=== PATIENT | female | born 1950 | race Caucasian/White ===

== ENCOUNTER → 2017-05-19 | Outpatient (CLI) | payer BC, MEDICARE ==
[~2017-05-19] MED LIST: AL-MAG HYDROX-S30 M1 PO; AMITRIPTYLINE H50 MG PO; CELEBREX PO; CRESTOR; FUROSEMIDE40 MG PO; LORTAB 10/500 T1 TAB; LORTAB 5/500 TA1 TA2 PO; MEDROL DOSEPAK4 MG PO; METHOCARBAMOL500 MG PO; NABUMETONE; NEURONTIN PO; OPANA ER30 MG PO; PREMARIN PO; SYNTHROID PO; ULTRACET TABLET1 TAB; VESICARE; VIT E; ZYRTEC PO
--- NOTE | ~2017-05-19 | NM4 ---
[facility] A Service of [facility] RADIOLOGY TEXT RESULTS PATIENT: JONNY BAH LOCATION: [facility] : 46 UNIT #: [id number] AGE: [address]: Benjamin Mccurdy MD SEX: F ORDER DR: [id number] [facility] [address] [place], [place] [address] [id number] O MR#: [id number] Acc #: [id number] NAME: JONNY BAH : 1950 SEX: F STUDY DATE/TIME: 05/19/2017 9:44 UNIT: [facility] ROOM: STUDY DESCRIPTION: [place] Bone or Joint 3 Phase Study Attending Physician: Benjamin Mccurdy M.D. Referring Physician: Benjamin Mccurdy M.D. Ordering Physician: Benjamin Mccurdy M.D. Primary Care Physician: Bret Christy M.D. MEDICAL IMAGING REPORT This report is preliminary unless electronic signature is present EXAM Three-phase bone scan. HISTORY 67-year-old female left knee pain extending up into hip, symptoms since November 2016. Patient has had bilateral total knee arthroplasties with a left total knee 30 years ago and a right total knee 10-11 years ago. COMPARISON Bilateral knee films, 04/19/2016. FINDINGS Three-phase bone scan was performed centered over the knees following the intravenous administration of 29.2 mCi technetium 99m MDP. Examination demonstrates normal symmetric flow to the knees. Immediate blood pool imaging appears normal. Delayed-phase imaging demonstrates photopenic areas related to the patient's total knee arthroplasties. There is mild symmetric uptake about the tibial components of both knees. No bone scan findings to suggest loosening. Please note the delayed images are slightly degraded due to motion artifact. IMPRESSION Normal three-phase bone scan of the knees in this patient status post bilateral knee arthroplasties. Mild symmetric uptake across the tibial component of both arthroplasties only on delayed-phase images and is felt to be within normal limits. No imaging findings to suggest infection or loosening. Dictated by... Sascha Brooke M.D. THIS IS AN ELECTRONICALLY VERIFIED REPORT Sascha Brooke M.D. at 05/23/2017 1:32 PM [facility] A Service of [facility] RADIOLOGY TEXT RESULTS PATIENT: JONNY BAH LOCATION: [facility] #: [id number] : 46 UNIT #: [id number] AGE: [address]: Benjamin Mccurdy MD SEX: F ORDER DR: Jacque TD: 05/23/2017 08:19 JOB #: [id number] MEDICAL IMAGING REPORT Page 1 of 1 COPY
== END | disposition home or self-care (01) ==
LOC: CNUC 08:58
DX: M25.562 Pain in left knee (principal)
CPT/HCPCS: 36415; 78315; 85652; 86140; A9503